=== PATIENT | female | born 1995 | race Caucasian/White ===

== ENCOUNTER 2019-07-30 14:43 | Emergency (ER) | payer OTHER ==
[2019-07-30 15:35] VITALS: BP 129/93; O2SAT 100
[2019-07-30] MEDS: HYDROcodone 7.5MG/APAP 325MG 1 EA TAB PO ONE (15:41)
[2019-07-30] MEDS: PROMETHAZINE HCL 25 MG TAB PO ONE (15:42)
[2019-07-30] MEDS: predniSONE 20 MG TAB PO ONE (15:42)
--- NOTE | 2019-07-30 16:45 | ED.PDOC ---
History of Present Illness - General Chief Complaint: Headache Stated Complaint: migraine headache Time Seen by Provider: 07/30/19 15:21 Source: patient Exam Limitations: no limitations - History of Present Illness Initial Comments: the patient's 21-year-old female presented to the emergency room secondary to her recurrent migraine headache. The patient has been getting a migraine headache every month or so for the last year. The patient has 28 weeks according to her. Headache started about 3 hours ago. It is in its typical pattern with some left-sided numbness and tingling. No loss of since patient. Mild blurry vision. Mild nausea. No vomiting. No new symptoms. No head trauma. No altered mental status. heart tones were obtained.head ache is moderate in intensity. Timing/Duration: 1-3 hours Severity: moderate Improving Factors: nothing Worsening Factors: nothing Associated Symptoms: denies symptoms Allergies/Adverse Reactions: Allergies Ceftriaxone [From Rocephin] Allergy (Verified 07/30/19 15:35) Sulfa Antibiotics Allergy (Verified 07/30/19 15:35) Home Medications: Ambulatory Orders Vit W/ Ferrous Fumara [] 1 tab PO DAILY 07/30/19 Review of Systems - Review of Systems Constitutional: States: malaise EENTM: States: blurred vision - transient Respiratory: States: no symptoms reported Cardiology: States: no symptoms reported Gastrointestinal/Abdominal: States: no symptoms reported Genitourinary: States: no symptoms reported Musculoskeletal: States: no symptoms reported Skin: States: no symptoms reported Neurological: States: see HPI, headache Endocrine: States: no symptoms reported All other Systems: No Change from Baseline Past Medical History (General) - Patient Medical History Hx Stroke: No Hx Congestive Heart Failure: No Hx Diabetes: No Surgical History: tonsillectomy - Vaccination History Hx Influenza Vaccination: Yes - Social History Hx Tobacco Use: No - Female History Patient is a Female of Child Bearing Age (10 -59 yrs old): Yes Patient : Yes Expected Date of Delivery:: 10/18/19 Hx Gestational Age: 28 Family Medical History - Family History Mother Family History: Unknown Physical Exam - Physical Exam General Appearance: Alert, Comfortable, No apparent distress Eye Exam: bilateral normal Ears, Nose, Throat: hearing grossly normal, normal pharynx Neck: full range of motion - no nuchal rigidity or meningeal signs, supple Respiratory: no respiratory distress, no accessory muscle use Cardiovascular/Chest: normal peripheral pulses, no edema, other - regular rate Peripheral Pulses: radial,right: 2+, radial,left: 2+ Gastrointestinal/Abdominal: non tender, soft Rectal Exam: deferred Back Exam: no CVA tenderness, no vertebral tenderness Extremity: normal range of motion, non-tender, normal inspection, no pedal edema, normal capillary refill Neurologic: acoustic engineer II-XII nml as tested, no motor/sensory deficits - there are no actual neurological definable deficits at this time., alert, normal mood/affect, oriented x 3 Skin Exam: normal color Comments: Vital Signs - 24 hr 07/30/19 15:32 Temperature 96.3 F L Pulse Rate [ 103 H Left Brachial] Respiratory 16 Rate Blood Pressure 129/93 [Left Arm] O2 Sat by Pulse 100 Oximetry Progress - Progress Progress: 07/30/19 16:46 the patient is a 23-year-old female presenting to emergency room secondary to a recurrent migraine headache. The patient is feeling better after a dose of nausea and pain medication. She needs to keep herself well-hydrated. The patient may benefit from a workup with neurology after delivery if the headaches persist. ER warnings were given. there are no obvious neurological deficits at this time. pérez [email or web address] [id number] Departure - Departure Clinical Impression: Migraine Qualifiers: Migraine type: unspecified Status migrainosus presence: without status mi grainosus Intractability: not intractable Qualified Code(s): G43.909 - Migraine, unspecified, not intractable, without status migrainosus Disposition: Discharge to Home or Self Care Condition: Fair Departure Forms: ED Discharge - Pt. Copy, Patient Portal Self Enrollment Diet: regular diet Activity: increase activity as tolerated Home Medications: Ambulatory Orders Vit W/ Ferrous Fumara [] 1 tab PO DAILY 07/30/19 Additional Instructions: the patient is a 23-year-old female presenting to emergency room secondary to a recurrent migraine headache. The patient is feeling better after a dose of nausea and pain medication. She needs to keep herself well-hydrated. The patient may benefit from a workup with neurology after delivery if the headaches persist. ER warnings were given
[2019-07-30 17:03] VITALS: TEMP 96.4
== END 2019-07-30 17:03 | disposition home or self-care (01) ==
LOC: ER 14:43
DX: G43.909 Migraine, unspecified, not intractable, without status migrainosus (principal); O99.89 Other specified diseases and conditions complicating pregnancy, childbirth and the puerperium; Z3A.38 38 weeks gestation of pregnancy; Z88.2 Allergy status to sulfonamides; Z88.1 Allergy status to other antibiotic agents
CPT/HCPCS: J7512; Q0169